=== PATIENT | male | born 1970 | race Caucasian/White ===

== ENCOUNTER → 2020-08-07 | Outpatient (CLI) | payer MEDICAID ==
[~2020-08-07] VITALS: Ht 175.3 cm; Wt 90.7 kg
[~2020-08-07] MED LIST: ASPI81CH43 PO; ATO40T PO; EZET10TA22 PO; FURO1TAB33 PO; HYDR-4833 PO; METO25TA93 PO; MONT5CHW17 PO; PANT40TA2 PO; PHE100C PO; POTA10TA51 PO; SUMA50TA2 PO; TOPI25TA32 PO
== END | disposition home or self-care (01) ==
LOC: CATH 07:35 → EDSTATUS 08-11 07:59
PROVIDERS: ATTEND Internal Medicine Cardiovascular Disease
DX: Z01.818 Encounter for other preprocedural examination (principal); R07.89 Other chest pain; E66.9 Obesity, unspecified; Z20.828 Contact with and (suspected) exposure to other viral communicable diseases; Z98.890 Other specified postprocedural states; Z68.29 Body mass index [BMI] 29.0-29.9, adult

== ENCOUNTER → 2020-11-24 | Day surgery (SDC) | payer MEDICAID ==
[~2020-11-24] VITALS: Ht 175.3 cm; Wt 90.7 kg
[~2020-11-24] MED LIST changes: +ANGIOMAX 250 MG VIAL IV ONE; +ASPI1TAB19 PO; -ASPI81CH43 PO; -FURO1TAB33 PO; +HEPARIN SODIUM (PORCINE) 5000 UNITS/ML 1ML VIAL ONE; +IODIXANOL 320MG/ML 100ML BTL IV ONE; +LIDOCAINE 2%HCL (LOCAL ANESTH.) INJ 20ML MDV ONE; +MIDAZOLAM HCL 1MG/1ML-2 ML VIAL ONE; -MONT5CHW17 PO; -PHE100C PO; +PHEN100C PO; -POTA10TA51 PO; +SODIUM CHL 0.9% 0 ML ONE; +SUMA100T15 PO; -SUMA50TA2 PO; -TOPI25TA32 PO; +TOPI25TA43 PO; +VERAPAMIL 2.5MG/ML INJ 2ML VIAL IV ONE; +fentaNYL CITRATE 100 MCG/2 ML VL ONE
== END | disposition home or self-care (01) ==
LOC: CATH 06:59
PROVIDERS: ATTEND Internal Medicine Cardiovascular Disease
DX: R94.39 Abnormal result of other cardiovascular function study (principal); I25.10 Atherosclerotic heart disease of native coronary artery without angina pectoris; E78.5 Hyperlipidemia, unspecified; J98.4 Other disorders of lung; K21.9 Gastro-esophageal reflux disease without esophagitis; J44.9 Chronic obstructive pulmonary disease, unspecified; R00.2 Palpitations; G62.9 Polyneuropathy, unspecified; Z20.822 Contact with and (suspected) exposure to COVID-19; Z87.891 Personal history of nicotine dependence; Z79.899 Other long term (current) drug therapy
CPT/HCPCS: 93458; C1887; C1894; J1644; J2250; J3010; J7030; Q9967; U0003; 99152